=== PATIENT | female | born 1980 | race Caucasian/White ===

== ENCOUNTER 2019-06-21 12:49 | Emergency (ER) | payer SELFPAY ==
[~2019-06-21] VITALS: Ht 165.1 cm; Wt 68.0 kg
[~2019-06-21 12:49] MED LIST: MOTRIN
[2019-06-21] MEDS ORDERED: MORPHINE SULFATE 10 MG/ML CPJ IM ONE (13:15)
[2019-06-21] MEDS ORDERED: KETOROLAC 60MG/2ML VIAL IM ONE (13:15)
[2019-06-21] MEDS ORDERED: ONDANSETRON 4MG ODT PO ONE (13:15)
[2019-06-21 14:38] VITALS: BP 117/67
[2019-06-21 14:54] LABS: HCG SCREEN NEGATIVE
== END 2019-06-21 15:08 | disposition home or self-care (01) ==
LOC: ER 13:03
DX: M54.9 Dorsalgia, unspecified (principal); S83.8X1A Sprain of other specified parts of right knee, initial encounter; W00.0XXA Fall on same level due to ice and snow, initial encounter; Y93.89 Activity, other specified; Y92.89 Other specified places as the place of occurrence of the external cause; Y99.9 Unspecified external cause status
CPT/HCPCS: 29505; 73502; 73562; 84703; 96372; 99284; J1885; J2270; L1830; Q0162